=== PATIENT | female | born 2000 | race American Indian/Alaskan Native ===

== ENCOUNTER 2021-12-20 18:08 | Emergency (ER) | payer MEDICAID ==
[2021-12-20 19:10] VITALS: BP 115/77
--- NOTE | 2021-12-20 20:23 | XRay Report ---
CHEST 2 VIEWS INDICATION / CLINICAL INFORMATION: chest pain. COMPARISON: 09/07/2021 FINDINGS: SUPPORT DEVICES: None. HEART / MEDIASTINUM: No significant abnormality. LUNGS / PLEURA: No significant pulmonary or pleural abnormality. No pneumothorax. ADDITIONAL FINDINGS: No significant additional findings. IMPRESSION: 1. No acute findings. Signer Name: John Washington MD Signed: 12/20/2021 8:19 PM Workstation Name: [id number]
== END 2021-12-20 23:02 | disposition left against medical advice (07) ==
LOC: ED 18:08
DX: R07.9 Chest pain, unspecified (principal); Z53.21 Procedure and treatment not carried out due to patient leaving prior to being seen by health care provider
CPT/HCPCS: 71046; 93005

== ENCOUNTER 2022-01-17 23:07 | Emergency (ER) | payer MEDICAID ==
[2022-01-18 01:02] VITALS: BP 107/65
[2022-01-18 01:31] LABS: Basophils % (Auto) 0.7 % (0.0-1.8); Eosinophils # (Auto) 0.2 K/mm3 (0.0-0.4); Eosinophils % (Auto) 3.6 % (0.0-4.3); Hematocrit 37.5 % (30.3-42.9); Hemoglobin 11.9 gm/dl (10.1-14.3); Lymphocytes # (Auto) 1.9 K/mm3 (1.2-5.4); Lymphocytes % (Auto) 38.1 % (13.4-35.0); Mean Corpuscular HGB Conc 32 % (30-34); Mean Corpuscular Volume 89 fl (79-97); Monocytes # (Auto) 0.8 K/mm3 (0.0-0.8); Platelet Count 245 K/mm3 (140-440); Red Cell Distribution Width 13.7 % (13.2-15.2)
[2022-01-18 01:51] LABS: Blood Urea Nitrogen 16 mg/dL (7-17); Calcium 9.1 mg/dL (8.4-10.2); Hemolysis Index 12
[2022-01-18 01:57] LABS: BUN/Creatinine Ratio 27
[2022-01-18 02:56] LABS: Bilirubin,Urine NEG (Negative); Blood,Urine NEG (Negative); Color,Urine Yellow (Yellow); Mucus,Urine FEW /HPF; Protein,Urine <15 mg/dL mg/dL (Negative); RBC,Urine < 1.0 /HPF (0.0-6.0); Urobilinogen,Urine < 2.0 mg/dL (<2.0)
[2022-01-18] MEDS ORDERED: KETOROLAC 10 MG TAB PO ONE (03:36)
--- NOTE | 2022-01-18 07:16 | Ultrasound Report ---
ULTRASOUND ABDOMEN, LIMITED INDICATION / CLINICAL INFORMATION: RUQ pain. COMPARISON: None available. FINDINGS: PANCREAS: Visualized portion shows no significant abnormality. AORTA: Longitudinal images of the aorta demonstrate no significant abnormality. IVC: Longitudinal images of the inferior vena cava demonstrate no significant abnormality. LIVER: Right hepatic lobe measures 13.8 cm. No focal mass present. Normal hepatopedal blood flow in t he main portal vein. GALLBLADDER: At least one gallstone is present within the gallbladder fundus. The gallbladder wall is borderline in size measuring 2.5 mm. No pericholecystic fluid demonstrated. BILE DUCTS: No significant abnormality. Common bile duct measures 1.9 mm. RIGHT KIDNEY: No acute findings are suggested to involve the right kidney. FREE FLUID: None. ADDITIONAL FINDINGS: None. IMPRESSION: 1. Cholelithiasis. No specific features of acute cholecystitis. Signer Name: Justyn Arana II, MD Signed: 01/18/2022 7:11 AM Workstation Name: [id number]
--- NOTE | 2022-01-18 07:35 | Emergency Department Report ---
ED Female HPI - General Chief complaint: Vaginal Bleeding Stated complaint: ABD PAIN/VAGINAL BLEEDING Time Seen by Provider: 01/18/22 02:15 Source: patient Mode of arrival: Ambulatory Limitations: No Limitations - History of Present Illness Initial comments: Patient is a 21-year-old that comes to the emergency room complaining of right- sided abdominal pain and irregular vaginal bleeding. Her last menstrual reported to be January 05. She denies nausea vomiting or diarrhea. She denies fever or chills. She denies dysuria or vaginal discharge. She denies back pain she has not taken anything prior to arrival in the ER. She has not seen her PCP MD Complaint: vaginal bleeding -: Gradual, days(s) Severity: mild Severity scale (0 -10): 1 Quality: cramping Consistency: intermittent Improves with: none Worsens with: none Are you Now?: No Associated Symptoms: denies other symptoms, vaginal bleeding. denies: vaginal discharge, abdominal pain, nausea/vomiting, fever/chills, headaches, loss of appetite, dysuria, hematuria, rash, seizure, shortness of breath, syncope, weakness - Related Data Sexually active: Yes Previous Rx's Medication Instructions Recorded Last Taken Type hydrOXYzine HCL [Atarax] 25 mg PO Q6HR PRN #14 tablet 09/07/21 Unknown Rx Butalb/Acetamin/Caff 50-325-40 1 - 2 tab PO Q6HR PRN #10 tab 12/06/21 Unknown Rx [Fioricet 50-325-40] Ibuprofen [Motrin] 600 mg PO Q8H PRN #24 tablet 12/06/21 Unknown Rx Allergies Allergy/AdvReac Type Severity Reaction Status Date / Time No Known Allergies Allergy Verified 12/20/21 19:10 ED Review of Systems ROS: Stated complaint: ABD PAIN/VAGINAL BLEEDING Other details as noted in HPI Comment: All other systems reviewed and negative ED Past Medical Hx - Past Medical History Previous Medical History?: Yes Hx Psychiatric Treatment: Yes (Anxiety and depression) - Surgical History Past Surgical History?: No - Family History Family history: no significant - Social History Smoking Status: Never Smoker Substance Use Type: Alcohol - Medications Home Medications: Home Medications Medication Instructions Recorded Confirmed Last Taken Type hydrOXYzine HCL [Atarax] 25 mg PO Q6HR PRN #14 tablet 09/07/21 Unknown Rx Butalb/Acetamin/Caff 50-325-40 1 - 2 tab PO Q6HR PRN #10 tab 12/06/21 Unknown Rx [Fioricet 50-325-40] Ibuprofen [Motrin] 600 mg PO Q8H PRN #24 tablet 12/06/21 Unknown Rx ED Physical Exam - General Limitations: No Limitations General appearance: alert, in no apparent distress - Head Head exam: Present: atraumatic, normocephalic - Eye Eye exam: Present: normal appearance - ENT ENT exam: Present: mucous membranes moist - Neck Neck exam: Present: normal inspection - Respiratory Respiratory exam: Present: normal lung sounds bilaterally. Absent: respiratory distress - Cardiovascular Cardiovascular Exam: Present: regular rate, normal rhythm. Absent: systolic murmur, diastolic murmur, rubs, gallop - GI/Abdominal GI/Abdominal exam: Present: soft, normal bowel sounds - Extremities Exam Extremities exam: Present: normal inspection - Back Exam Back exam: Present: normal inspection - Neurological Exam Neurological exam: Present: alert, oriented X3 - Psychiatric Psychiatric exam: Present: normal affect, normal mood - Skin Skin exam: Present: warm, dry, intact, normal color. Absent: rash ED Course Vital Signs 01/18/22 00:59 Temperature 98.4 F Pulse Rate 84 Respiratory 18 Rate Blood Pressure 107/65 [Right] ED Medical Decision Making - Lab Data Result diagrams: 01/18/22 01:13 01/18/22 01:13 - Radiology Data Radiology results: report reviewed, image reviewed see report - Medical Decision Making Vital Signs 01/18/22 00:59 Temperature 98.4 F Pulse Rate 84 Respiratory 18 Rate Blood Pressure 107/65 [Right] Labs 01/18/22 01/18/22 01/18/22 01:13 01:13 01:13 WBC 4.9 RBC 4.20 Hgb 11.9 Hct 37.5 MCV 89 MCH 28 MCHC 32 RDW 13.7 Plt Count 245 Lymph % (Auto) 38.1 H Isabella % (Auto) 16.0 H Eos % (Auto) 3.6 Baso % (Auto) 0.7 Lymph # (Auto) 1.9 Isabella # (Auto) 0.8 Eos # (Auto) 0.2 Baso # (Auto) 0.0 Seg Neutrophils % 41.6 Seg Neutrophils # 2.0 Sodium 139 Potassium 3.8 Chloride 104.0 Carbon Dioxide 23 Anion Gap 16 BUN 16 Creatinine 0.6 Estimated GFR > 60 BUN/Creatinine Ratio 27 Glucose 80 Calcium 9.1 HCG, Quant < 2 Urine Color Urine Turbidity Urine pH Ur Specific [place] Urine Protein Urine Glucose (UA) Urine Ketones Urine Blood Urine Nitrite Urine Bilirubin Urine Urobilinogen Ur Leukocyte Esterase Urine WBC (Auto) Urine RBC (Auto) U Epithel Cells (Auto) Urine Mucus 01/18/22 02:45 WBC RBC Hgb Hct MCV MCH MCHC RDW Plt Count Lymph % (Auto) Isabella % (Auto) Eos % (Auto) Baso % (Auto) Lymph # (Auto) Isabella # (Auto) Eos # (Auto) Baso # (Auto) Seg Neutrophils % Seg Neutrophils # Sodium Potassium Chloride Carbon Dioxide Anion Gap BUN Creatinine Estimated GFR BUN/Creatinine Ratio Glucose Calcium HCG, Quant Urine Color Yellow Urine Turbidity Clear Urine pH 6.0 Ur Specific [place] 1.028 Urine Protein <15 mg/dl Urine Glucose (UA) Neg Urine Ketones Neg Urine Blood Neg Urine Nitrite Neg Urine Bilirubin Neg Urine Urobilinogen < 2.0 Ur Leukocyte Esterase Neg Urine WBC (Auto) 1.0 Urine RBC (Auto) < 1.0 U Epithel Cells (Auto) 14.0 H Urine Mucus Few Labs noted negative Ultrasound noted Vital signs are stable. Taking p.o. she has no fever or chills. Her abdominal exam is unremarkable. She has no CVA tenderness. I have discussed with patient the findings of her ultrasound and labs. Patient being discharged home with discharge plan of care including PCP follow- up. She verbalizes understanding of plan of care. I have discussed the gallstone with the patient. She has no obstruction. Her LFTs are normal. - Differential Diagnosis Rule out , UTI, Shakeel Critical care attestation.: If time is entered above; I have spent that time in minutes in the direct care of this critically ill patient, excluding procedure time. ED Disposition Clinical Impression: Irregular menses Gall stone Qualifiers: Cholecystitis presence: without cholecystitis Disposition: HOME / SELF CARE / HOMELESS Is pt being admited?: No Does the pt Need Aspirin: No Condition: Stable Instructions: Cholelithiasis, [id number] Additional Instructions: See attached information for information regarding your diagnosis Follow-up with primary care as we discussed referral below Stay well-hydrated See attached information regarding diet Motrin or Tylenol for pain Follow-up with [facility] for your irregular menses I have given you referral below Referrals: NAHUN ARAGON MD [Staff Physician] - 3-5 Days JUAN ALBERTO NICHOLSON MD [Staff Physician] - 3-5 Days Forms: Work/School Release Form(ED) Time of Disposition: 07:35
== END 2022-01-18 07:56 | disposition home or self-care (01) ==
LOC: ED 23:07
DX: N92.6 Irregular menstruation, unspecified (principal); K80.20 Calculus of gallbladder without cholecystitis without obstruction; F41.9 Anxiety disorder, unspecified; F32.9 Major depressive disorder, single episode, unspecified; Z72.89 Other problems related to lifestyle; Z79.899 Other long term (current) drug therapy
CPT/HCPCS: 36415; 76705; 80048; 81001; 84702; 85025; 99284